=== PATIENT | female | born 1985 | race African-American/Black ===

== ENCOUNTER 2019-01-20 22:12 | Emergency (ER) | payer BC, MEDICAID ==
[2019-01-20] MEDS ORDERED: Ondansetron ODT 4 MG TAB ONE (22:44)
[2019-01-20 22:52] LABS: Bilirubin Small (Negative); Blood, Urine Negative (Negative); Clarity Clear (Clear); Glucose, Urine (Dipstick) Negative (Negative); Leukocyte Negative (Negative); Nitrite Negative (Negative); Protein, Urine (Dipstick) 30 mg/dL (Neg-Trace)
[2019-01-20 22:54] LABS: RBC/HPF 0-3 HPF (0-3)
[2019-01-20 22:55] LABS: Bacteria/HPF Rare-Few HPF (None Seen); WBC/HPF 0-3 HPF (0-3)
== END 2019-01-20 23:43 | disposition home or self-care (01) ==
LOC: MADERS 22:12
DX: O21.0 Mild hyperemesis gravidarum (principal); Z3A.01 Less than 8 weeks gestation of pregnancy
CPT/HCPCS: 81001; 99284; Q0162

== ENCOUNTER 2020-02-03 14:42 | Outpatient (CLI) | payer BC | END 2020-02-03 14:43 | disposition home or self-care (01) | LOC: MADLABSP 14:42 | PROVIDERS: ATTEND Family Medicine | DX: Z01.411 Encounter for gynecological examination (general) (routine) with abnormal findings (principal); N89.8 Other specified noninflammatory disorders of vagina | CPT/HCPCS: 87480; 87510; 87660 ==

== ENCOUNTER 2021-08-12 15:51 | Emergency (ER) | payer BC ==
[2021-08-13 22:36] LABS: SARS-CoV-2 PCR by NAA DETECTED (NotDetected)
== END 2021-08-12 18:18 | disposition home or self-care (01) ==
LOC: MADERS 15:51
DX: U07.1 COVID-19 (principal)
CPT/HCPCS: 99284; U0003; U0005